=== PATIENT | male | born 1980 | race Caucasian/White ===

== ENCOUNTER 2021-11-16 08:36 | Emergency (ER) | payer BC, SELFPAY ==
[2021-11-16 08:40] VITALS: BP 136/77; PULSE 68; RESP 14; TEMP 36.9; O2SAT 100
--- NOTE | 2021-11-16 09:05 | ED.NAVMDI ---
HPI - Nausea/Vomiting/Diarrhea General Chief complaint: Nausea/Vomiting/Diarrhea Stated complaint: Abdominal Pain/Vomiting Time Seen by Provider: 11/16/21 09:06 Source: patient, RN notes reviewed and old records reviewed Mode of arrival: ambulatory Limitations: no limitations History of Present Illness HPI Narrative: 41-year-old male who presents to [facility] with complaints of nausea with 1 episode of dry heaving this morning and also abdominal cramping with diarrhea. Patient denies any fevers chills or sweats or body aches. Patient reports that he still has abdominal cramping and diarrhea. Patient has been COVID vaccinated but did not have flu shot this season. Patient denies any burning or any pain with urination or any CVA tenderness. MD elicited complaint: nausea, vomiting, diarrhea and abdominal pain (cramping) Pertinent past history: other (gastric bypass) Onset (ago): hour(s) (this morning) Associated nausea: Yes Associated abdominal pain: Yes Pain consistency: constant Severity: mild Pain scale (0-10): 4 Quality: cramping Treatment prior to arrival: none Related Data Allergies Allergy/AdvReac Type Severity Reaction Status Date / Time No Known Allergies Allergy Unverified 11/16/21 09:01 Review of Systems Review of Systems: CONSTITUTIONAL: Denies fever, chills, or sweats. EYES: Denies visual changes, redness, or discharge. ENT: Denies rhinorrhea, congestion, sore throat, or otalgia. CARDIOVASCULAR: Denies chest pain, palpitations, or edema. RESPIRATORY: Denies cough or dyspnea. GASTROINTESTINAL: mid abdominal pain, nausea, vomiting, or diarrhea. GENITOURINARY: Denies dysuria or hematuria. SKIN: Denies rash or itching. MUSCULOSKELETAL: Denies back pain, joint pain, or myalgia. NEUROLOGIC: Denies headache, numbness, or weakness. PSYCHIATRIC: Denies anxiety or depression. All systems reviewed & are unremarkable except as noted in HPI and below PMFSH Past Medical History Medical History Gout Hypertriglyceridemia Low vitamin D level Tinea cruris Surgical History Surgical History H/O gastric bypass Family History Family History Grandparent Family history of emphysema Other Cerebrovascular accident Social History Social History Smoking status: Never smoker Second hand tobacco smoke exposure: No Alcohol intake: current Comments At time of signature, agree with nursing past medical, surgical, social and family history. There is no relevant family history pertinent to the presenting complaint Exam Narrative: GENERAL: Well-appearing, well-nourished, and in no acute distress. HEAD: Normocephalic, atraumatic. EYES: PERRLA and EOMI. ENT: Nares clear, no rhinorrhea or epistaxis. Mucous membranes moist.TM's normal with good light reflex, throat pink with no lesions or exudates no tonsil swelling NECK: Supple.no lymphadenopathy CHEST: Clear to auscultation. No respiratory distress.SAO2 100% on room air HEART: Regular rate and rhythm. No murmur heard. Normal peripheral pulses. ABDOMEN: Soft, cramping tenderness to mid abdominal abdomen, no McBurney point tenderness or any CVA tenderness, nondistended, hyperactive bowel sounds. EXTREMITIES: Normal range of motion. No edema. SKIN: Warm, dry, no rash. NEURO: No focal deficits. Alert and oriented x3. Course Course Level of Care: Express Care Visit Vital Signs Vital signs: Vital Signs Temperature 36.9 C 11/16/21 08:40 Pulse Rate 68 11/16/21 08:40 Respiratory Rate 14 11/16/21 08:40 Blood Pressure 136/77 11/16/21 08:40 Pulse Oximetry 100 11/16/21 08:40 Temperature 36.9 C 11/16/21 08:40 Pulse Rate 68 11/16/21 08:40 Respiratory Rate 14 11/16/21 08:40 Blood Pressure 136/77 11/16/21 08:40 Pulse Oximetry 100
== END 2021-11-16 09:25 | disposition home or self-care (01) ==
PROVIDERS: Emergency Provider Registered Nurse
DX: K52.9 Noninfective gastroenteritis and colitis, unspecified (principal); M10.9 Gout, unspecified; E78.1 Pure hyperglyceridemia; E55.9 Vitamin D deficiency, unspecified
CPT/HCPCS: 99213; G0463

== ENCOUNTER 2021-12-12 10:05 | Outpatient (CLI) | payer BC, SELFPAY ==
[2021-12-12 19:01] LABS: Basophils Absolute Auto 0.1 K/mm3 (0.0-0.1); Basophils Percent Auto 0.9 % (0.2-1.2); Eosinophils Absolute Auto 0.2 K/mm3 (0-0.3); Eosinophils Percent Auto 2.8 % (0-4.4); Hematocrit 47.6 % (42.0-52.0); Hemoglobin 15.7 g/dL (14.0-18.0); Immature Granulocyte Absolute 0.02 K/mm3 (0.00-0.031); Immature Granulocyte Percent A 0.3 % (0-0.5); Lymphocytes Absolute Auto 1.13 K/mm3 (0.9-3.2); Lymphocytes Percent Auto 19.4 % (18.3-44.2); Mean Corpuscular Hemoglobin 32.4 pg (26-34); Mean Corpuscular Volume 98.3 fl (80-100); Mean Platelet Volume 11.5 fl (7.4-10.4); Monocytes Absolute Auto 0.5 K/mm3 (0.1-0.6); Neutrophils Absolute Auto 3.9 K/mm3 (1.3-6.7); Neutrophils Percent Auto 67.6 % (45.5-73.1); Platelet Count Result 212 k/mm3 (150-375); Red Blood Count 4.84 M/mm3 (4.6-6.20); Red Cell Distribution Width 12.5 % (11.5-14.5); White Blood Count 5.8 K/mm3 (4.5-10.0)
[2021-12-12 19:25] LABS: Alanine Aminotransferase 38 U/L (6-50); Albumin Level 4.8 g/dL (3.5-5.1); Alkaline Phosphatase 74 U/L (38-126); Anion Gap 7 mmol/L (8-16); Aspartate Amino Transferase 49 U/L (17-59); Bilirubin,Total 1.2 mg/dL (0.2-1.3); Blood Urea Nitrogen 15 mg/dL (9-20); Calcium 9.4 mg/dL (8.4-10.2); Carbon Dioxide 29 mmol/L (22-30); Chloride 100 mmol/L (98-107); Cholesterol 182 mg/dL (0-200); Estimated Glomerular Filt Rate > 60; Glucose 80 mg/dL (65-110); HDL Direct 64 mg/dL; Potassium 4.5 mmol/L (3.4-5.0); Sodium 136 mmol/L (137-145); Triglycerides 95 mg/dL (<150)
[2021-12-12 19:28] LABS: Uric Acid 5.5 mg/dL (3.5-8.5)
[2021-12-12 19:36] LABS: LDL Cholesterol Direct 92 mg/dL
[2021-12-12 19:39] LABS: Vitamin D 25 Hydroxy 60.7 ng/mL
[2021-12-12 20:27] LABS: Hemoglobin A1C 4.7 % (<5.7)
== END 2021-12-12 10:06 | disposition home or self-care (01) ==
PROVIDERS: PCP Family Medicine; Visit Provider Family Medicine
DX: R79.89 Other specified abnormal findings of blood chemistry (principal); M10.9 Gout, unspecified; F51.04 Psychophysiologic insomnia; Z51.81 Encounter for therapeutic drug level monitoring; Z79.899 Other long term (current) drug therapy; Z00.00 Encounter for general adult medical examination without abnormal findings
CPT/HCPCS: 36415; 80053; 80061; 82306; 83036; 84550; 85025

== ENCOUNTER 2023-03-12 10:50 | Outpatient (CLI) | payer BC, SELFPAY ==
[2023-03-12 18:39] LABS: Basophils Percent Auto 0.8 % (0.2-1.2); Eosinophils Absolute Auto 0.2 K/mm3 (0-0.3); Hematocrit 46.1 % (42.0-52.0); Hemoglobin 15.1 g/dL (14.0-18.0); Immature Granulocyte Absolute 0.03 K/mm3 (0.00-0.031); Immature Granulocyte Percent A 0.6 % (0-0.5); Lymphocytes Absolute Auto 1.15 K/mm3 (0.9-3.2); Lymphocytes Percent Auto 21.8 % (18.3-44.2); Mean Corpuscular HGB Conc 32.8 g/dl (32-36); Mean Corpuscular Volume 100.7 fl (80-100); Mean Platelet Volume 11.6 fl (7.4-10.4); Monocytes Absolute Auto 0.5 K/mm3 (0.1-0.6); Monocytes Percent Auto 9.1 % (2.6-8.5); Neutrophils Absolute Auto 3.4 K/mm3 (1.3-6.7); Neutrophils Percent Auto 64.7 % (45.5-73.1); Platelet Count Result 195 k/mm3 (150-375); Red Blood Count 4.58 M/mm3 (4.6-6.20); Red Cell Distribution Width 12.5 % (11.5-14.5); White Blood Count 5.3 K/mm3 (4.5-10.0)
[2023-03-12 19:19] LABS: Alanine Aminotransferase 32 U/L (6-50); Albumin Level 4.4 g/dL (3.5-5.1); Alkaline Phosphatase 66 U/L (38-126); Anion Gap 8 mmol/L (8-16); Aspartate Amino Transferase 53 U/L (17-59); Bilirubin,Total 0.9 mg/dL (0.2-1.3); Blood Urea Nitrogen 13 mg/dL (9-20); Calcium 8.9 mg/dL (8.4-10.2); Carbon Dioxide 25 mmol/L (22-30); Chloride 104 mmol/L (98-107); Cholesterol 174 mg/dL (0-200); Estimated Glomerular Filt Rate > 60; Glucose 78 mg/dL (65-110); HDL Direct 52 mg/dL; Potassium 4.3 mmol/L (3.4-5.0); Sodium 137 mmol/L (137-145); Triglycerides 123 mg/dL (<150)
[2023-03-12 19:29] LABS: LDL Cholesterol Direct 95 mg/dL
[2023-03-12 20:06] LABS: Vitamin D 25 Hydroxy 54.5 ng/mL
== END 2023-03-12 10:51 | disposition home or self-care (01) ==
LOC: ANHBWCLAB 10:51
PROVIDERS: PCP Family Medicine; Visit Provider Family Medicine
DX: R79.89 Other specified abnormal findings of blood chemistry (principal); H61.20 Impacted cerumen, unspecified ear; E78.1 Pure hyperglyceridemia
CPT/HCPCS: 36415; 80053; 80061; 82306; 84443; 85025

== ENCOUNTER 2023-05-08 16:21 | Outpatient (CLI) | payer BC, SELFPAY ==
--- NOTE | ~2023-05-08 | XR_ITS ---
XR shoulder RT min 2V DATE: 05/08/2023 16:30 INDICATION: Right shoulder pain for 3 weeks. No known injury. 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 No fracture or dislocation, periosteal reaction or bone destruction. 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
== END 2023-05-08 16:22 | disposition home or self-care (01) ==
LOC: ANHBWCIMG 16:22
PROVIDERS: PCP Nurse Practitioner Adult Health; Visit Provider Nurse Practitioner Adult Health
DX: M25.511 Pain in right shoulder (principal); M25.711 Osteophyte, right shoulder; D21.11 Benign neoplasm of connective and other soft tissue of right upper limb, including shoulder
CPT/HCPCS: 73030

== ENCOUNTER 2024-01-06 10:25 | Outpatient (CLI) | payer BC, SELFPAY ==
[2024-01-06 18:44] LABS: Hematocrit 47.9 % (42.0-52.0); Hemoglobin 16.2 g/dL (14.0-18.0); Mean Corpuscular HGB Conc 33.8 g/dl (32-36); Mean Corpuscular Hemoglobin 32.5 pg (26-34); Mean Platelet Volume 11.5 fl (7.4-10.4); Platelet Count Result 195 k/mm3 (150-375); Red Blood Count 4.99 M/mm3 (4.6-6.20); Red Cell Distribution Width 13.2 % (11.5-14.5); White Blood Count 8.4 K/mm3 (4.5-10.0)
[2024-01-06 18:47] LABS: Alanine Aminotransferase 30 U/L (6-50); Albumin Level 3.8 g/dL (3.5-5.1); Alkaline Phosphatase 72 U/L (38-126); Anion Gap 6 mmol/L (4-12); Aspartate Amino Transferase 68 U/L (17-59); Blood Urea Nitrogen 14 mg/dL (9-20); Calcium 8.8 mg/dL (8.4-10.2); Carbon Dioxide 25 mmol/L (22-30); Chloride 106 mmol/L (98-107); Cholesterol 158 mg/dL (0-200); Estimated Glomerular Filt Rate > 60; Glucose 83 mg/dL (65-110); HDL Direct 45 mg/dL; Potassium 3.9 mmol/L (3.4-5.0); Sodium 137 mmol/L (137-145); Triglycerides 139 mg/dL (<150)
[2024-01-06 18:57] LABS: LDL Cholesterol Direct 92 mg/dL
[2024-01-06 19:08] LABS: Vitamin D 25 Hydroxy 36.6 ng/mL
== END 2024-01-06 10:26 | disposition home or self-care (01) ==
PROVIDERS: PCP Nurse Practitioner Adult Health; Visit Provider Family Medicine
DX: Z00.00 Encounter for general adult medical examination without abnormal findings (principal); E78.1 Pure hyperglyceridemia; F51.04 Psychophysiologic insomnia; M10.9 Gout, unspecified; R55 Syncope and collapse; R79.89 Other specified abnormal findings of blood chemistry
CPT/HCPCS: 36415; 80053; 80061; 82306; 85027

== ENCOUNTER 2024-05-15 09:47 | Emergency (ER) | payer BC, SELFPAY ==
[2024-05-15 09:53] VITALS: BP 125/79; PULSE 84; RESP 16; TEMP 36.3; O2SAT 99
--- NOTE | 2024-05-15 10:29 | ED.URI ---
HPI - URI/Sore Throat General Chief Complaint: Upper Respiratory Infection Stated Complaint: Runny Nose/Sore Throat/Cough Time Seen by Provider: 05/15/24 10:10 Source: patient, RN notes reviewed and old records reviewed Mode of arrival: ambulatory Limitations: no limitations History of Present Illness HPI Narrative: 43 year old male who presents to [facility] care with greater that one week duration of sinus congestion and drainage with sinus pressure and frontal headache. Patient reports that he also has productive cough of green phlegm. Patient reports that symptoms were worse a few days ago and continues to linger with cough worse at night. Patient reports no known fevers, chills or body aches. Patient reports that is ill with similar symptoms. He reports history of sinusitis and has been taking daily Zyrtec without improvement. MD elicited complaint: cough, rhinorrhea, nasal congestion, sinus pain and other (frontal headache) Pertinent past history: sinusitis Onset (ago): week(s) (greater than 1 week duration) Consistency: constant Pain scale (0-10): 4 Description of mucous: green Able to tolerate fluids by mouth: Yes Treatments prior to arrival: other (zyrtec) Related Data Home Medications Medication Instructions Recorded Confirmed glucosamine-chondroitin 250 mg-200 2 tablet PO TID 05/27/23 05/27/23 mg tablet (Osteo Bi-Flex) multivitamin 1 tablet PO DAILY 05/27/23 05/27/23 Allergies Allergy/AdvReac Type Severity Reaction Status Date / Time No Known Allergies Allergy Verified 05/15/24 09:54 Review of Systems Review of Systems: CONSTITUTIONAL: Reports malaise,no chills, sweats, or fever. EYES: Denies visual changes, redness, or discharge. ENT: Reports rhinorrhea, congestion, sinus pain, no otalgia and no sore throat. CARDIOVASCULAR: Denies chest pain, palpitations, or edema. RESPIRATORY: Reports productive cough.? Denies dyspnea. GASTROINTESTINAL: Denies abdominal pain, nausea, vomiting, diarrhea SKIN: Denies rash or itching. MUSCULOSKELETAL: Denies myalgia. NEUROLOGIC: Reports frontal headache. All systems reviewed & are unremarkable except as noted in HPI and below PMFSH Past Medical History Medical History Gout Hypertriglyceridemia Low vitamin D level Tinea cruris Surgical History Surgical History H/O gastric bypass Family History Family History Grandparent Family history of emphysema Other Cerebrovascular accident Social History Social History Smoking status: Never smoker Second hand tobacco smoke exposure: No Alcohol intake: current Substance use type: does not use Lack of Transportation: No Lack of Food: Never True Current Housing: I Have Housing Concerned About Future Housing: No Difficulty Paying Gas/Electric Bills: No Difficulty Paying for Meds: No Currently Unemployed: No Education: Trade/Vocational Certificate Difficulty w/ Childcare or Family Care: No Living arrangements: with family 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 There is no relevant family history pertinent to the presenting complaint Exam Narrative: GENERAL: Well-appearing, well-nourished, and in no acute distress. HEAD: Normocephalic EYES: PERRLA, conjunctivae clear ENT: Nares clear, turbinates edematous and erythematous, greenish discharge, sinus pressure and frontal headache. Mucous membranes moist. TM pearly balbuena with dull light reflex bilaterally; no tragal tenderness. Oropharynx erythematous without lesions. Tonsils not enlarged and without exudate, no drooling, no hoarseness, no trismus, uvula midline.post nasal drainage noted NECK: Supple. No lymphadenopathy CHEST: Clear to auscultation, breath sounds equal. No wheezing, rhonchi, rales, or stridor. No respiratory distress, speaks in full sentences.productive cough SAO2 99% on room air HEART: Regular rate and rhythm. No murmur heard. SKIN: Warm, dry, no rash. NEURO: Alert and oriented x3. PSYCH: Normal mood and affect Course Course Emergency Course: Patient is aware of diagnosis, understands and agrees to treatment plan.? Anticipatory guidance given.? Patient agrees to follow-up as directed and is aware of reasons to seek care at the emergency department. Portions of this record may have been created with voice recognition software Level of Care: Express Care Visit Vital Signs Vital signs: Vital Signs Temperature 36.3 C L 05/15/24 09:53 Pulse Rate 84 05/15/24 09:53 Respiratory Rate 16 05/15/24 09:53 Blood Pressure 125/79 05/15/24 09:53 Pulse Oximetry 99 05/15/24 09:53 Oxygen Delivery Room Air 05/15/24 09:53 Temperature 36.3 C L 05/15/24 09:53 Pulse Rate 84 05/15/24 09:53 Respiratory Rate 16 05/15/24 09:53 Blood Pressure 125/79 05/15/24 09:53 Pulse Oximetry 99 05/15/24 09:53 Oxygen Delivery Room Air 05/15/24 09:53 Reviewed MDM - URI/Sore Throat MDM Narrative Medical decision making narrative: Differential diagnosis considered: Brandt virus, strep pharyngitis, allergic rhinitis, upper respiratory tract infection, sinusitis, rhinosinusitis, nasopharyngitis. viral pharyngitis, otitis media, otitis externa, pneumonia, bronchitis, viral cough syndrome, viral syndrome, and influenza.? Exam findings show no acute concerns or changes; patient is non-toxic appearing and is in no distress.? Patient is appropriate for outpatient treatment and follow-up. Differential Diagnosis Differential diagnosis: Likely upper respiratory infection, sinusitis, bronchitis and other (acute cough) Medical Records Attestation: I reviewed the patient's medical records. Lab Data Attestation: I reviewed the patient's lab results. Critical Care Time Critical Care Time Critical Care Time: No Discharge Plan Discharge Clinical Impression: Sinusitis, Cough Patient Disposition: Home, Self-Care Condition: Stable Instructions: Antibiotic Form, Sinusitis (ED), Acute Cough (ED) Additional Instructions: Increase fluids especially juices and water [id number] cough and cold medicine of your choice for your symptoms Zyrtec Claritin or Tova daily Steroids as directed--take with food heat to the face 20-30 minutes 4-6 times a day for pain Salt water gargles, throat lozenges or throat sprays as desired Antibiotic as directed--finished the medication Tylenol or ibuprofen for any fever pain If your symptoms persist, change or worsen significantly before you can contact your personal physician then please, without delay, go to the emergency department for further evaluation. Follow-up with PCP in 7-10 days or sooner if needed Prescriptions: New amoxicillin 875 mg tablet 875 mg PO Q12H Qty: 20 0RF Rx Instructions: take all doses of medication prednisone 20 mg tablet 20 mg PO BID Qty: 10 0RF No Action multivitamin Tablet 1 tablet PO DAILY glucosamine-chondroitin [Osteo Bi-Flex] 250-200 mg tablet 2 tablet PO TID Rx Instructions: give after food/meal cholecalciferol (vitamin D3) 1,250 mcg (50,000 unit) capsule 1,250 mcg PO WEEKLY Qty: 14 1RF Follow-up/Referrals: Blaze Fileds MD [Primary Care Provider] - Time of Disposition: 10:44 Quality Syl Coma Scale Eyes: Open Verbal: Oriented and Alert Motor: Follows Commands Syl Coma Total Score: 15
== END 2024-05-15 10:44 | disposition home or self-care (01) ==
PROVIDERS: Emergency Provider Registered Nurse; PCP Family Medicine
DX: J32.9 Chronic sinusitis, unspecified (principal); R05.9 Cough, unspecified; E78.1 Pure hyperglyceridemia; M10.9 Gout, unspecified; Z98.84 Bariatric surgery status
CPT/HCPCS: 99213; G0463

== ENCOUNTER 2024-08-03 00:25 | Day surgery (SDC) | payer BC, SELFPAY ==
[2024-07-16 09:09] VITALS: BMI 35.4
[2024-08-03 07:26] VITALS: BP 143/99; PULSE 43; RESP 20; TEMP 35.9; O2SAT 99; BMI 33.3
[2024-08-03 07:43] VITALS: PULSE 71
[2024-08-03] MEDS: LACTATED RINGERS 1,000 ML 150 ML IV CONT (07:43)
--- NOTE | 2024-08-03 07:44 | P.PNAN_ITS ---
Anes - Initial Pre Proc Eval Procedure: Operation Date: 08/03/24 08:30 Proposed Procedures p Colonoscopy - Sang Luther MD Date/Time: 08/03/24 07:44 Surgeon: Sang Luther MD Pre Op Diagnosis: screening of colon Patient Data Age: 44 Gender: M Height: 2.01 m Weight: 134.4 kg Last Vital Signs Temp 35.9 C L 08/03/24 07:26 Pulse 43 L 08/03/24 07:26 Resp 20 08/03/24 07:26 BP 143/99 H 08/03/24 07:26 Pulse Ox 99 08/03/24 07:26 O2 Del Method Room Air 08/03/24 07:26 Allergies Allergy/AdvReac Type Severity Reaction Status Date / Time No Known Allergies Allergy Verified 08/03/24 07:24 Home Medications ?Medication ?Instructions ?Recorded ?Confirmed ?Type glucosamine-chondroitin 250 mg-200 2 tablet PO TID 05/27/23 08/03/24 History mg tablet (Osteo Bi-Flex) multivitamin 1 tablet PO DAILY 05/27/23 08/03/24 History cholecalciferol (vitamin D3) 1,250 1,250 mcg PO WEEKLY #14 caps 01/06/24 07/16/24 Rx mcg (50,000 unit) capsule amoxicillin 875 mg tablet 875 mg PO Q12H #20 tabs 05/15/24 07/16/24 Rx prednisone 20 mg tablet 20 mg PO BID #10 tabs 05/15/24 07/16/24 Rx Patient hx anesthesia problems: none Family hx anesthesia problems: none Results Review: All pre-operative results and documents have been reviewed as part of the pre- operative evaluation. [facility] Past Medical History Medical History (Updated 08/03/24 @ 07:45 by Hector Nick MD) Obesity Tinea cruris Low vitamin D level Hypertriglyceridemia Gout Surgical History Surgical History H/O gastric bypass Family History Family History Grandparent Family history of emphysema Other Cerebrovascular accident Social History Social History Smoking status: Never smoker Second hand tobacco smoke exposure: No Alcohol intake: current Substance use type: does not use Lack of Transportation: No Lack of Food: Never True Current Housing: I Have Housing Concerned About Future Housing: No Difficulty Paying Gas/Electric Bills: No Difficulty Paying for Meds: No Currently Unemployed: No Education: Trade/Vocational Certificate Difficulty w/ Childcare or Family Care: No Living arrangements: with family 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 Informed Consent: The patient's anesthetic plan and its attendant risks and benefits were discussed with the patient/family/POA. Questions were solicited and answers provided to the satisfaction of the patient/family/POA.
--- NOTE | 2024-08-03 08:36 | PM.HPGS ---
History of Present Illness History of Present Illness Consent: Risks, benefits, and alternatives have been discussed and questions answered. Patient agrees to proceed with procedure. Chief complaint: screening of colon Narrative: John Driver is a 44 year old male here for first screening colonoscopy Review of Systems Review of Systems: All systems reviewed & are unremarkable except as noted in HPI and below PMFSH Past Medical History Medical History (Updated 08/03/24 @ 07:45 by Hector Nick MD) Obesity Tinea cruris Low vitamin D level Hypertriglyceridemia Gout Surgical History Surgical History H/O gastric bypass Family History Family History Grandparent Family history of emphysema Other Cerebrovascular accident Social History Social History Smoking status: Never smoker Second hand tobacco smoke exposure: No Alcohol intake: current Substance use type: does not use Lack of Transportation: No Lack of Food: Never True Current Housing: I Have Housing Concerned About Future Housing: No Difficulty Paying Gas/Electric Bills: No Difficulty Paying for Meds: No Currently Unemployed: No Education: Trade/Vocational Certificate Difficulty w/ Childcare or Family Care: No Living arrangements: with family 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 Gender identity (if verbalized by the patient): Male Meds Home Medications and Allergies Home Medications ?Medication ?Instructions ?Recorded ?Confirmed ?Type glucosamine-chondroitin 250 mg-200 2 tablet PO TID 05/27/23 08/03/24 History mg tablet (Osteo Bi-Flex) multivitamin 1 tablet PO DAILY 05/27/23 08/03/24 History cholecalciferol (vitamin D3) 1,250 1,250 mcg PO WEEKLY #14 caps 01/06/24 07/16/24 Rx mcg (50,000 unit) capsule amoxicillin 875 mg tablet 875 mg PO Q12H #20 tabs 05/15/24 07/16/24 Rx prednisone 20 mg tablet 20 mg PO BID #10 tabs 05/15/24 07/16/24 Rx Allergies Allergy/AdvReac Type Severity Reaction Status Date / Time No Known Allergies Allergy Verified 08/03/24 07:24 Vital Signs Vital Signs - 24 hr 08/03/24 07:26 08/03/24 07:43 Temperature 96.6 F L Pulse Rate 43 L 71 Respiratory Rate 20 Blood Pressure 143/99 H Pulse Oximetry 99 Oxygen Delivery Room Air Exam Const: General: comfortable and no acute distress HENMT: Face/Nose/Sinus: Normal nares present Eyes: General: appearance normal, both eyes and all related structures Neck: Neck: no JVD Resp: Auscultation: clear to auscultation bilaterally Cardio: Rate: regular rate Rhythm: regular rhythm GI: Inspection: non-distended GI Palp: Yes Soft to palpation Skin: General skin exam: normal color Neuro: General: gait normal Speech: normal speech Extrem: General: normal to inspection Psych: Mental Status: mental status grossly normal Assessment and Plan Assessment and plan (1) Colon cancer screening: Code(s): Z12.11 - Encounter for screening for malignant neoplasm of colon Status: Acute Assessment and Plan: colonoscopy
[2024-08-03 08:54] VITALS: BP 133/79; PULSE 74; RESP 19; O2SAT 98
[2024-08-03 09:04] VITALS: BP 120/83; PULSE 67; RESP 20; O2SAT 99
[2024-08-03 09:14] VITALS: BP 120/79; PULSE 62; RESP 22; O2SAT 100
== END 2024-08-03 09:36 | disposition home or self-care (01) ==
PROVIDERS: PCP Family Medicine; Visit Provider Internal Medicine Gastroenterology
PROC: 0DJD8ZZ Inspection of Lower Intestinal Tract, Via Natural or Artificial Opening Endoscopic (ICD-10-PCS; CPT 45378; principal; 2024-08-03 08:30)
DX: Z12.11 Encounter for screening for malignant neoplasm of colon (principal); K64.8 Other hemorrhoids; E55.9 Vitamin D deficiency, unspecified; E78.1 Pure hyperglyceridemia; E66.9 Obesity, unspecified; Z68.33 Body mass index [BMI] 33.0-33.9, adult; Z79.52 Long term (current) use of systemic steroids; Z98.890 Other specified postprocedural states; Z98.84 Bariatric surgery status; Z82.49 Family history of ischemic heart disease and other diseases of the circulatory system
CPT/HCPCS: 45378; J2003; J2704; J7120

== ENCOUNTER 2025-01-12 08:42 | Outpatient (CLI) | payer BC, SELFPAY ==
[2025-01-12 18:51] LABS: Basophils Percent Auto 0.6 % (0.2-1.2); Eosinophils Absolute Auto 0.2 K/mm3 (0-0.3); Eosinophils Percent Auto 2.6 % (0-4.4); Hematocrit 50.5 % (42.0-52.0); Immature Granulocyte Absolute 0.03 K/mm3 (0.00-0.031); Immature Granulocyte Percent A 0.4 % (0-0.5); Lymphocytes Absolute Auto 1.36 K/mm3 (0.9-3.2); Lymphocytes Percent Auto 19.7 % (18.3-44.2); Mean Corpuscular HGB Conc 31.7 g/dl (32-36); Mean Corpuscular Hemoglobin 32.1 pg (26-34); Mean Corpuscular Volume 101.4 fl (80-100); Mean Platelet Volume 11.5 fl (7.4-10.4); Monocytes Absolute Auto 0.6 K/mm3 (0.1-0.6); Monocytes Percent Auto 9.1 % (2.6-8.5); Neutrophils Absolute Auto 4.7 K/mm3 (1.3-6.7); Neutrophils Percent Auto 67.6 % (45.5-73.1); Platelet Count Result 223 k/mm3 (150-375); Red Blood Count 4.98 M/mm3 (4.6-6.20); Red Cell Distribution Width 12.6 % (11.5-14.5); White Blood Count 6.9 K/mm3 (4.5-10.0)
[2025-01-12 19:38] LABS: Alanine Aminotransferase 28 U/L (6-50); Albumin Level 4.2 g/dL (3.5-5.1); Alkaline Phosphatase 81 U/L (38-126); Anion Gap 8 mmol/L (4-12); Aspartate Amino Transferase 75 U/L (17-59); Blood Urea Nitrogen 17 mg/dL (9-20); Calcium 9.1 mg/dL (8.4-10.2); Carbon Dioxide 24 mmol/L (22-30); Chloride 104 mmol/L (98-107); Cholesterol 189 mg/dL (0-200); Estimated Glomerular Filt Rate > 60; Glucose 69 mg/dL (65-110); HDL Direct 52 mg/dL; Potassium 4.4 mmol/L (3.4-5.0); Sodium 136 mmol/L (137-145); Triglycerides 398 mg/dL (<150)
[2025-01-12 19:40] LABS: Vitamin D 25 Hydroxy 24.4 ng/mL
[2025-01-12 19:48] LABS: LDL Cholesterol Direct 80 mg/dL
[2025-01-12 20:00] LABS: Hepatitis B Surface Antigen Negative (Negative)
[2025-01-12 20:05] LABS: HAV RESULT Negative (Negative); Hepatitis B Core IgM Result Negative (Negative)
[2025-01-12 20:17] LABS: Hepatitis C Virus Antibody Negative (Negative)
[2025-01-13 20:24] LABS: CRP, High Sensitivity 1.2 mg/L
[2025-01-17 13:58] LABS: Apolipoprotein B 86 mg/dL
== END 2025-01-12 08:43 | disposition home or self-care (01) ==
LOC: ANHBWCLAB 08:44
PROVIDERS: PCP Family Medicine; Visit Provider Family Medicine
DX: Z00.00 Encounter for general adult medical examination without abnormal findings (principal); E78.1 Pure hyperglyceridemia; R79.89 Other specified abnormal findings of blood chemistry; R74.01 Elevation of levels of liver transaminase levels; R55 Syncope and collapse; Z79.899 Other long term (current) drug therapy
CPT/HCPCS: 36415; 80053; 80061; 80074; 82172; 82306; 85025; 86141

== ENCOUNTER 2025-06-20 09:16 | Outpatient (CLI) | payer BC, SELFPAY ==
--- NOTE | ~2025-06-20 | US_ITS ---
ULTRASOUND ABDOMEN LIMITED (RIGHT UPPER QUADRANT) Clinical History: R74.01 - Elevation of levels of liver transaminase levels Comparison: None Technique: Right upper quadrant sonography Findings: Liver: Enlarged. Normal echotexture. No intrahepatic biliary ductal dilatation. Normal hepatopedal flow main portal vein. Micronodular contour. Common Duct: 6 mm. Gallbladder: No stones. No wall thickening. No pericholecystic fluid. Pancreas: Obscured by bowel gas. IMPRESSION: 1. Hepatomegaly. Mild cirrhosis not excluded. Reviewed, dictated and finalized at location R. [facility]ER
--- OUTSIDE RECORDS SUMMARY | 2025-06-20 10:00 | XMS_ITS | Clinical Summary ---
Author Organization [facility] Address [address] [place] [address] Care Team Providers Care Case Aide Name Role Phone Unavailable Primary Care Provider Unavailabl e Source Comments [facility],non-owned Affiliates and Associated Physician Practices is amultiple site organization consisting of ambulatory clinics and hospital sitesin [place], [place], [place] and [place]. This disclosure is being madepursuant to the Care Everywhere program and may not contain all information available regarding this patient. Last updated 18.[facility] Social History Tobacco Use Types Packs/Day Years Used Date Smoking Tobacco: Never Assessed Sex and Gender Information Value Date Recorded Sex Assigned at Not on file Legal Sex Male 10:28 PM CHECKERER HAND Gender Identity Not on file Sexual Orientation Not on file Last Filed Vital Signs Vital Sign Reading Time Taken Comments Blood Pressure 118/75 07/07/2022 4:20 AM CHECKERER HAND Pulse 88 07/07/2022 4:20 AM CHECKERER HAND Temperature 36.9 C (98.4 F) 2022 10:33 PM CHECKERER HAND Respiratory Rate 18 07/07/2022 4:20 AM CHECKERER HAND Oxygen Saturation 98% 07/07/2022 4:20 AM CHECKERER HAND Inhaled Oxygen Concentration - - Weight - - Height 203.2 cm (6' 8) 2022 10:34 PM CHECKERER HAND Body Mass Index - - Plan of Treatment Health Maintenance Due Date Last Done Comments COLOGUARD (AGES 45-75) - COL ON CA SCREENING 1978 COLON MONITORING 1978 COLONOSCOPY - COLON CA SCREENING 1978 CT COLONOGRAPHY - COLON CA SCREENING 1978 Colorectal Cancer Screening 1978 FIT - COLON CA SCREENING 1978 FLEX SIG - COLON CA SCREENING 1978 LIPID TESTING 1978 HIV SCREENING 1993 HEPATITIS C SCREENING 07/01/1996 DTAP/TDAP/TD VACCINES (1 - Tdap) 1997 HEPATITIS B VACCINE (1 of 3 - 19+ 3-dose series) 1997 DEPRESSION SCREENING 07/21/2024 COVID-19 VACCINE (1 - 2024-2 6 season) 2025 INFLUENZA VACCINE (#1) 2025 ZOSTER VACCINE (1 of 2) 2028 HIB VACCINE Aged Out No longer eligi ble based on patient's age to complete this topic HPV VACCINE Aged Out No longer eligi ble based on patient's age to complete this topic MENINGOCOCCAL (Group B) VACC INE SHARED DECISION-MAKING Aged Out No longer eligibl e based on patient's age to complete this topic MENINGOCOCCAL GROUPS A/C/Y/W VACCINE Aged Out No longer eligible b ased on patient's age to complete this topic PNEUMOCOCCAL VACCINE Aged Out No long er eligible based on patient's age to complete this topic Insurance [facility] [employer]
--- OUTSIDE RECORDS SUMMARY | 2025-06-20 10:00 | XMS_ITS | Clinical Summary ---
Author Organization [facility] Address [address] [address] Phone Care Team Providers Care Resin Filterer Name Role Phone Provider, None Primary Care Provider Unavailabl e Allergies No known active allergies Medications No known medications Active Problems No known active problems Family History Relation Name Status Comments Father Alive Mother Alive Social History Tobacco Use Types Packs/Day Years Used Date Smoking Tobacco: Never Smokeless Tobacco: Never Alcohol Use Standard Drinks/Week Comments Yes 0 (1 standard drink = 0.6 oz pur e alcohol) Sex and Gender Information Value Date Recorded Sex Assigned at Not on file Legal Sex Male 8:48 PM CDT Gender Identity Not on file Sexual Orientation Not on file Last Filed Vital Signs Vital Sign Reading Time Taken Comments Blood Pressure 130/78 08/07/2015 11:01 AM ART LIBRARIAN Pulse 90 08/07/2015 11:01 AM ART LIBRARIAN Temperature 36.3 C (97.3 F) 08/07/2015 11:01 AM ART LIBRARIAN Respiratory Rate 20 08/07/2015 11:01 AM ART LIBRARIAN Oxygen Saturation 95% 08/07/2015 11:01 AM ART LIBRARIAN Inhaled Oxygen Concentration - - Weight 181 kg (399 lb) 08/07/2015 11:01 AM ART LIBRARIAN Height 203.2 cm (6' 8) 08/07/2015 11:01 AM ART LIBRARIAN Body Mass Index 43.83 08/07/2015 11:01 AM ART LIBRARIAN Plan of Treatment Health Maintenance Due Date Last Done Comments Hepatitis C Virus (HCV) Screening 1978 TdaP Immunization 1978 Hepatitis B Immunization (1 of 3 - 19+ 3-dose series) 1997 Cologuard 2023 Colonoscopy 2023 Colorectal Cancer Screening 2023 Immunochemical Fecal Occult Blood 2023 Influenza Immunization (#1) 2025 SARS-COV-2 Immunization ( - 2023- season) 2025 Respiratory Syncytial Virus (RSV) Immunization (Adult) (1 - 1-dose 75+ series) 2053 Human Papillomavirus (HPV) Immunization Aged Out No longer eligible b ased on patient's age to complete this topic Meningococcal Immunization (ACWY) Aged Out No longer eligible based on patient's age to complete this topic Pneumococcal Immunization Combined Aged Out No longer eligible based on patient's age to complete this topic Rotavirus Immunization Aged Out No lo nger eligible based on patient's age to complete this topic Insurance [facility] Care Teams Resin Filterer Relationship Specialty Start Date End Date Provider, None [place] PCP - General 01/03/21
--- OUTSIDE RECORDS SUMMARY | 2025-06-20 10:00 | XMS_ITS | Patient Health Record ---
Author Organization [facility] Address [address] [place] [phone] Phone [phone] Care Team Providers Care Lending Manager Name Role Phone BIRDIE VALLE, DR. FORD Primary Care Provider Reason For Referral No Information Social History Sex Observation Social History Observation Description Sex Observation Male Social History Additional Details Category Social Info Options Details MigratedSocialHX MigratedSocialHX Smoking Status :denies smoking Problems Problem Type SNOMED Code ICD Code Dates Problem Status W/U Status Risk Notes Problem Need For Prophylactic Vaccination And Inoculation Against Tetanus-diphth eria [td] (V06.5) Onset Date: 011 Active confirmed joel-Need For Prophylactic Vaccination And Inoculation Against Tetanus-diphth eria [td] Problem Open wound without complication (08218147) Laceration/Lef t (879.8) Onset Date: 011 Active confirmed joel-Laceration /Left Plan Of Treatment No Information Insurance Providers Payer Name Payer Address Payer Phone Subscriber Number Group Number Insured Name Patient Relationship to Insured Coverage Start Date Coverage End Date [facility] [address] [place] [phone] [id number] John Driver Self - patient is the insured
== END 2025-06-20 09:17 | disposition home or self-care (01) ==
PROVIDERS: PCP Family Medicine; Visit Provider Family Medicine
DX: R16.0 Hepatomegaly, not elsewhere classified (principal); K74.60 Unspecified cirrhosis of liver; R74.01 Elevation of levels of liver transaminase levels
CPT/HCPCS: 76705